=== PATIENT | female | born 1940 | race Asian ===

== ENCOUNTER 2020-12-14 14:29 | Outpatient (CLI) | payer OTHER ==
--- NOTE | 2020-12-14 15:14 | BD ---
DEXA bone density examination: 12/14/2020 COMPARISON: None HISTORY: Postmenopausal female undergoing screening for Lumbar Spine: BMD (g/cm2) T-SCORE L1 0.767 -2.0 L2 0.524 -4.6 L3 0.550 -4.9 L4 0.541 -4.7 L1-L4 0.585 -4.2 Femoral Neck: 0.427 -3.8 Total Proximal Femur: 0.509 -3.5 The FRAX-WHO fracture risk assessment tool is not report as T-scores are at or below -2.5. Impression: There is diffuse osteoporosis correlating with a high risk for fracture. Transcribed Date/Time: 12/14/2020 3:31 PM
--- NOTE | 2020-12-14 15:14 | RAD ---
Lumbar spine 2 views: 12/14/2020 COMPARISON: None HISTORY: Back injury in early October 2020, back pain FINDINGS: There is a prominent anterior wedge compression deformity at the L1 level with approximatel y 65% loss of vertebral body height anteriorly. Possible minimal retropulsion. No additional lumbar spine fracture is noted. No anterolisthesis or retrolisthesis is appreciated on this exam. There is m ild multilevel lower lumbar spine facet hypertrophy. IMPRESSION: Prominent anterior wedge compression fracture at L1 with approximately 65% loss of verteb ral body height anteriorly. Results relayed to Dr. Servin via [facility] at 3:11 PM 12/14/2020
== END 2020-12-14 14:30 | disposition home or self-care (01) ==
LOC: BICMAMMO 14:29
PROVIDERS: ATTEND Family Medicine Sports Medicine
DX: Z13.820 Encounter for screening for osteoporosis (principal); M54.9 Dorsalgia, unspecified; Z78.0 Asymptomatic menopausal state; S32.010D Wedge compression fracture of first lumbar vertebra, subsequent encounter for fracture with routine healing; M81.0 Age-related osteoporosis without current pathological fracture
CPT/HCPCS: 72100; 77080

== ENCOUNTER 2021-10-16 13:30 | Outpatient (CLI) | payer OTHER | END 2021-10-16 13:31 | disposition home or self-care (01) | LOC: DTY/OP 13:30 | PROVIDERS: ATTEND Family Medicine Sports Medicine | DX: R63.4 Abnormal weight loss (principal) | CPT/HCPCS: 97802 ==